=== PATIENT | female | born 1995 | race Caucasian/White ===

== ENCOUNTER → 2020-12-14 01:53 | Outpatient (CLI) | payer OTHER, SELFPAY ==
[2020-12-14 19:04] LABS: SARS-CoV-2 RNA PCR Negative
== END ==
PROVIDERS: Visit Provider Surgery Plastic and Reconstructive Surgery
DX: Z23 Encounter for immunization (principal)
CPT/HCPCS: C9803; U0003; U0005

== ENCOUNTER 2020-12-17 01:39 | Day surgery (SDC) | payer OTHER, SELFPAY ==
[2020-12-03 15:54] VITALS: BMI 23.0
[2020-12-17] VITALS (8 sets, daily range): BP systolic 98–117; BP diastolic 62–84; PULSE 79–108; RESP 13–25; TEMP 36.3; O2SAT 98–100
[2020-12-17] MEDS: LACTATED RINGERS 1,000 ML 30 ML IV CONT (08:55)
[2020-12-17 09:07] LABS: Urine Cotinine NEGATIVE
--- NOTE | 2020-12-17 10:10 | WPDHPUPDATE1 ---
History and Physical Update Update Date/Time: 12/17/20 10:10 History and Physical has been reviewed, including an updated exam of the patient. There are NO changes in the patient's condition. Risks, benefits, and alternatives have been discussed and questions answered. Patient agrees to proceed with procedure.
--- NOTE | 2020-12-17 10:12 | WPDANESEPPF ---
Anes - Initial Pre Proc Eval Procedure: Operation Date: 12/17/20 10:30 Proposed Procedures p Bilateral Reduction Mammoplasty - Keith Dailey MD Date/Time: 12/17/20 10:12 Surgeon: Keith Dailey MD Pre Op Diagnosis: Macromastia Patient Data Age: 25 Gender: F Height: 5 ft 3 in Weight: 61.3 kg Last Vital Signs Temp 97.4 F L 12/17/20 08:36 Pulse 84 12/17/20 08:36 Resp 18 12/17/20 08:36 BP 117/84 12/17/20 08:36 Pulse Ox 100 12/17/20 08:36 Allergies Allergy/AdvReac Type Severity Reaction Status Date / Time No Known Allergies Allergy Unknown Verified 12/17/20 09:08 Home Medications Medication Instructions Recorded Confirmed Type hydrocodone 5 mg-acetaminophen 325 1 tablet PO Q6H PRN #15 tablet 12/02/20 12/03/20 Rx mg tablet ondansetron HCl 4 mg tablet 4 mg PO Q6H PRN #30 tablet 12/02/20 12/03/20 Rx Laboratory Tests 12/17/20 08:41 Cotinine Negative Patient hx anesthesia problems: none Family hx anesthesia problems: none PMFSH Past Medical History Medical History (Updated 12/17/20 @ 10:16 by Max Schilling MD) Healthy adult Social History Social History (Updated 12/02/20 @ 15:33 by Opal Resendez RN) Smoking status: Never smoker Alcohol intake: current Drinks per week: 3 Substance use: never Substance use type: does not use Living arrangements: with family Spiritual care concerns: No Anes - Eval Final PreProcedure Day of Procedure 12/17/20 10:12 Patient weight: normal Heart: regular rate and rhythm Lungs: clear to auscultation Airway: Mallampati scale class II Neurological: alert and oriented Last oral intake: >/= 8 hours ASA classification: II Emergent: no Anesthetic plan: proceed Anesthesia type and monitoring: general LMA and standard monitoring Informed Consent: The patient's anesthetic plan and its attendant risks and benefits were discussed with the patient/family/POA. Questions were solicited and answers provided to the satisfaction of the patient/family/POA.
--- NOTE | 2020-12-17 10:35 | PM.PROC ---
Procedure Note - Detailed Date of procedure: 12/17/20 Pre-op diagnosis: Macromastia Breast asymmetry Post-op diagnosis: same Procedure performed: Bilateral reduction mammoplasty Description of procedure: She is here today for bilateral breast reduction. Previously and again today the risks, benefits, alternatives were discussed in extensive detail. I wanted her to be very realistic about the risks involved as well as expectations. We discussed aftercare and what to monitor for. She understands we can never guarantee final breast size and there will always be asymmetry. I was very upfront and honest about the risks of sensation change and even nipple loss (). Made sure answered all of her questions to her satisfaction today and consent was obtained. She was marked in the preoperative holding area with their verification. The patient was taken to the operating room placed supine on the operating table. Anesthesia was provided by anesthesiology. She was prepped and draped in a standard sterile fashion. A surgical time-out was taken. Stab incisions were made and I tumessed with a tumescent solution. I marked out the nipple-areolar complex at 42 mm. I then de-epithelialized the pedicle. The pedicle was well left well more than 2 cm in thickness. I then removed the inferior portion of the breast as well as the central keel to get shape based on preoperative planning. At this point copiously irrigated with saline solution and verified a strict hemostasis. I reapproximated the pillars using a 2-0 PDS as well as along the IMF. I tailor tacked the breast into place with bruce. She was placed in a sitting position. I verified the nipple-areolar complex position based on preoperative markings, intraoperative measurements, and observation which were in full agreement. This nipple-areolar complex was marked at 42 mm in size. I then placed supine and de-epithelialized this. Nipple-areolar complex was inset with 3-0 Monocryl. I closed the vertical incision with 3-0 Monocryl in the IMF with 3-0 stratafix. Then everything was closed using a running subcuticular 4-0 Monocryl followed by Steri-Strips. A dressing was placed followed by surgical bra. Patient was awoke and taken to PACU without difficulty. All instrument sponge counts were correct at the end of the case. Anesthesia: GLMA Surgeon: eKith Dailey MD Estimated blood loss (mL): 20 Drains: No Packing: No Pathology: yes (Bilateral breast tissue) Complications: No immediate complications Condition: stable Disposition: PACU Findings: Superior medial pedicle. Inverted T. Tissue removed: Right - 257.7 grams Left - 292.2 grams
[2020-12-17] MEDS: ceFAZolin 2 GM/D5W 50 ML 2 GM/50 ML BAG IVPB (10:45)
[2020-12-17] MEDS: LACTATED RINGERS IRRIG 1,000 ML, LIDOCAINE HCL 1% LOCAL INJ 50 ML, EPINEPHrine HCL INJ ... XX (11:10)
[2020-12-17] MEDS: fentaNYL CITRATE INJ (*CRX) 100 MCG/2 ML VIAL 25 MCG IV PUSH ×4 (13:20→13:46)
[2020-12-17] MEDS: oxyCODONE HCL (*CRX) 5 MG TAB IR PO (14:27)
== END 2020-12-17 14:46 | disposition home or self-care (01) ==
PROVIDERS: Visit Provider Surgery Plastic and Reconstructive Surgery
PROC: 0HBV0ZZ Excision of Bilateral Breast, Open Approach (ICD-10-PCS; CPT 19318; principal; 2020-12-17 10:30)
DX: N62 Hypertrophy of breast (principal); N64.89 Other specified disorders of breast; N60.32 Fibrosclerosis of left breast; N60.31 Fibrosclerosis of right breast; N60.41 Mammary duct ectasia of right breast
CPT/HCPCS: 19318; 80307; 88305; A9270; J0171; J0690; J1100; J2250; J2370; J2405; J2704; J3010; J7120